=== PATIENT | female | born 1945 | race Two or more races ===

== ENCOUNTER 2021-12-24 18:59 | Emergency (ER) | payer MEDICARE, BC ==
[~2021-12-24] VITALS: Ht 167.6 cm; Wt 59.0 kg
[2021-12-24 19:57] VITALS: BP 162/86
[2021-12-24] MEDS ORDERED: ACETAMINOPHEN ES 500 MG TABLET PO ONE (20:00)
[2021-12-24] MEDS ORDERED: ACETAMINOPHEN ES 500 MG TABLET ONE (20:11)
--- NOTE | 2021-12-24 20:15 | NUR ---
PT TAKEN TO CT
--- NOTE | 2021-12-25 03:07 | NUR ---
Patient discharged to home in stable condition. Written and verbal after care instructions given. Patient verbalizes understanding of instruction.
== END 2021-12-25 03:08 | disposition home or self-care (01) ==
LOC: ER 19:06
DX: S51.012A Laceration without foreign body of left elbow, initial encounter (principal); S00.83XA Contusion of other part of head, initial encounter; S80.02XA Contusion of left knee, initial encounter; M25.531 Pain in right wrist; R51.9 Headache, unspecified; J44.9 Chronic obstructive pulmonary disease, unspecified; Z88.8 Allergy status to other drugs, medicaments and biological substances; W01.198A Fall on same level from slipping, tripping and stumbling with subsequent striking against other object, initial encounter; Y93.89 Activity, other specified; Y92.89 Other specified places as the place of occurrence of the external cause; Y99.8 Other external cause status
CPT/HCPCS: 99284; 70450; 72170; 73564; 70486; 73110; A6403